=== PATIENT | female | born 1985 | race Two or more races ===

== ENCOUNTER 2020-03-21 05:46 | Inpatient (IN) | payer BC, OTHER ==
[~2020-03-21] VITALS: Ht 149.9 cm; Wt 85.0 kg
[2020-03-21] MEDS ORDERED: SODIUM CITRATE/CITRIC ACID 30 ML UDC PO ONE (06:00)
[2020-03-21] MEDS ORDERED: METOCLOPRAMIDE 5 MG/ML, 2ML IV ONE (06:00)
[2020-03-21] MEDS ORDERED: LACTATED RINGERS 1,000 ML IVBOLUS ONE (06:00)
[2020-03-21] MEDS: LACTATED RINGERS 1,000 ML IV SCH ×7 (06:30→22:00)
[2020-03-21] MEDS ORDERED: PLEASE ENTER ALLERGIES MC SCH (06:30)
[2020-03-21] MEDS ORDERED: NEWBORN KIT ONE (06:36)
[2020-03-21] MEDS ORDERED: OXYTOCIN 30U/ 0.9% NaCL 500ML 500 ML ONE (06:36)
[2020-03-21] MEDS ORDERED: METOCLOPRAMIDE 5 MG/ML, 2ML ONE (06:36)
[2020-03-21] MEDS ORDERED: SODIUM CITRATE/CITRIC ACID 15 ML UDC ONE (06:37)
[2020-03-21 06:44] LABS: BASOPHILS % (AUTO) 1 % (0-1); EOSINOPHILS % (AUTO) 1 % (1-7); LYMPHOCYTES % (AUTO) 19 % (22-44); MEAN CORPUSCULAR HEMOGLOBIN 30.3 pg (27.0-34.8); MEAN CORPUSCULAR HGB CONC 33.9 g/dL (32.4-35.8); MEAN PLATELET VOLUME 8.7 fL (7.4-10.4); MONOCYTES % (AUTO) 7 % (2-9); NEUTROPHILS % (AUTO) 73 % (42-75); PLATELET COUNT 247 x10^3/uL (130-400); RED CELL DISTRIBUTION WIDTH 13.8 % (9.6-15.2)
[2020-03-21 06:45] LABS: MD NO
[2020-03-21] MEDS: PLEASE ENTER ALLERGIES MC SCH ×3 (07:00→09:00)
[2020-03-21] MEDS ORDERED: ONDANSETRON 2MG/ML, 2ML ONE (07:19)
[2020-03-21] MEDS ORDERED: OXYTOCIN 10 UNITS/ML, 1ML ONE (07:19)
[2020-03-21] MEDS ORDERED: CEFAZOLIN 1,000 MG ONE (07:19)
[2020-03-21] MEDS ORDERED: HYDROmorphone 2 MG/ML, 1ML ONE (07:20)
[2020-03-21] MEDS ORDERED: FENTANYL PF 100 MCG/2ML ONE (07:20)
[2020-03-21] MEDS: OXYTOCIN 30U/ 0.9% NaCL 500ML 500 ML IV SCH ×2 (08:50→19:00)
[2020-03-21] MEDS: PRENATAL VIT/IRON/FA 1 EACH TABLET PO SCH (09:00)
[2020-03-21] MEDS ORDERED: OXYcodone IR 5MG TABLET PO PRN (09:00)
[2020-03-21] MEDS ORDERED: MORPHINE SULFATE 4 MG/ML, 1ML IVPush PRN (09:00)
[2020-03-21] MEDS ORDERED: METHYLERGONOVINE 0.2 MG/ML IM PRN (09:00)
[2020-03-21] MEDS ORDERED: morphine SULFATE 10 MG/ML, 1ML IVPush PRN (09:00)
[2020-03-21] MEDS ORDERED: MISOPROSTOL 200 MCG TABLET PR PRN (09:00)
[2020-03-21] MEDS ORDERED: CARBOPROST TROMETHAMINE 250 MCG/ML, 1ML IM PRN (09:00)
[2020-03-21] MEDS ORDERED: KETOROLAC 30 MG/1 ML ONE (09:22)
[2020-03-21] MEDS: KETOROLAC 30 MG/1 ML IV SCH ×3 (09:25→20:50)
[2020-03-21] MEDS ORDERED: OXYcodone IR 5MG TABLET ONE (10:24)
[2020-03-21] MEDS: OXYcodone IR 5MG TABLET PO PRN ×3 (10:29→19:58)
[2020-03-21 11:30] VITALS: BP 116/68
[2020-03-21 16:00] VITALS: BP 110/72
[2020-03-21 16:38] LABS: BASOPHILS % (AUTO) 0 % (0-1); EOSINOPHILS % (AUTO) 0 % (1-7); LYMPHOCYTES % (AUTO) 14 % (22-44); MEAN CORPUSCULAR HEMOGLOBIN 30.1 pg (27.0-34.8); MEAN CORPUSCULAR HGB CONC 33.7 g/dL (32.4-35.8); MEAN PLATELET VOLUME 8.3 fL (7.4-10.4); MONOCYTES % (AUTO) 7 % (2-9); NEUTROPHILS % (AUTO) 79 % (42-75); PLATELET COUNT 227 x10^3/uL (130-400); RED CELL DISTRIBUTION WIDTH 13.4 % (9.6-15.2)
[2020-03-21 16:49] LABS: MD NO
[2020-03-21 19:14] VITALS: BP 110/77
[2020-03-21] MEDS: SIMETHICONE 80 MG CHEW TAB PO PRN (20:50)
[2020-03-21] MEDS: DOCUSATE 100 MG CAPSULE PO PRN (20:50)
[2020-03-21] MEDS ORDERED: DIPH,PERTUSS(ACELL),TET VAC/PF NC IM-VACC ONE (23:15)
[2020-03-22] MEDS: OXYcodone IR 5MG TABLET PO PRN ×5 (00:14→21:28)
[2020-03-22 00:41] VITALS: BP 112/76
[2020-03-22] MEDS: LACTATED RINGERS 1,000 ML IV SCH ×8 (01:00→22:00)
[2020-03-22] MEDS: KETOROLAC 30 MG/1 ML IV SCH ×4 (03:07→21:27)
[2020-03-22 04:45] VITALS: BP 101/68
[2020-03-22] MEDS: OXYTOCIN 30U/ 0.9% NaCL 500ML 500 ML IV SCH ×2 (05:00→15:00)
[2020-03-22] MEDS: PRENATAL VIT/IRON/FA 1 EACH TABLET PO SCH (08:13)
[2020-03-22] MEDS: DOCUSATE 100 MG CAPSULE PO PRN ×2 (08:13→21:27)
[2020-03-22] MEDS: SIMETHICONE 80 MG CHEW TAB PO PRN ×2 (08:13→21:27)
[2020-03-22 08:18] VITALS: BP 108/76
[2020-03-22 19:30] VITALS: BP 113/75
[2020-03-23] MEDS: LACTATED RINGERS 1,000 ML IV SCH ×9 (01:00→22:00)
[2020-03-23] MEDS: OXYTOCIN 30U/ 0.9% NaCL 500ML 500 ML IV SCH ×3 (01:00→21:00)
[2020-03-23] MEDS: KETOROLAC 30 MG/1 ML IV SCH (03:22)
[2020-03-23] MEDS: OXYcodone IR 5MG TABLET PO PRN ×4 (03:23→19:50)
[2020-03-23 09:15] VITALS: BP 106/74
[2020-03-23] MEDS: IBUPROFEN 800 MG TABLET PO PRN ×2 (09:25→18:15)
[2020-03-23] MEDS: PRENATAL VIT/IRON/FA 1 EACH TABLET PO SCH (09:25)
[2020-03-23] MEDS: DOCUSATE 100 MG CAPSULE PO PRN ×2 (09:25→19:49)
[2020-03-23] MEDS: SIMETHICONE 80 MG CHEW TAB PO PRN ×2 (09:25→19:50)
[2020-03-23 19:50] VITALS: BP 113/78
[2020-03-24] MEDS: LACTATED RINGERS 1,000 ML IV SCH ×4 (01:00→09:00)
[2020-03-24] MEDS: IBUPROFEN 800 MG TABLET PO PRN ×2 (03:52→12:30)
[2020-03-24] MEDS: OXYcodone IR 5MG TABLET PO PRN ×3 (03:53→12:31)
[2020-03-24] MEDS ORDERED: DOCU-131 PO (06:56)
[2020-03-24] MEDS ORDERED: IBUP-1223 PO (06:56)
[2020-03-24] MEDS ORDERED: OXYC5TAB2 PO (06:56)
[2020-03-24] MEDS: OXYTOCIN 30U/ 0.9% NaCL 500ML 500 ML IV SCH (07:00)
[2020-03-24 08:45] VITALS: BP 118/84
[2020-03-24] MEDS: PRENATAL VIT/IRON/FA 1 EACH TABLET PO SCH (09:43)
[2020-03-24] MEDS: DOCUSATE 100 MG CAPSULE PO PRN (09:43)
== END 2020-03-24 12:52 | disposition home or self-care (01) | DRG 785 ==
LOC: LDIP 05:46 → 2NW 10:48
PROVIDERS: ADMIT Obstetrics & Gynecology; ATTEND Obstetrics & Gynecology
PROC: 10D00Z1 Extraction of Products of Conception, Low, Open Approach (ICD-10-PCS; principal; 2020-03-21)
PROC: 0UB50ZZ Excision of Right Fallopian Tube, Open Approach (ICD-10-PCS; 2020-03-21)
PROC: 0UB60ZZ Excision of Left Fallopian Tube, Open Approach (ICD-10-PCS; 2020-03-21)
DX: O34.211 Maternal care for low transverse scar from previous cesarean delivery (principal); O99.62 Diseases of the digestive system complicating childbirth; K66.0 Peritoneal adhesions (postprocedural) (postinfection); Z37.0 Single live birth; Z3A.39 39 weeks gestation of pregnancy; Z79.899 Other long term (current) drug therapy; Z20.822 Contact with and (suspected) exposure to COVID-19
CPT/HCPCS: 36415; 85025; 86592; 86850; 86900; 87635; 88302; G0378; J0690; J1170; J1885; J2405; J3010; C1765; J2590; J2765; J7120